=== PATIENT | female | born 1970 | race Caucasian/White ===

== ENCOUNTER → 2019-10-23 10:59 | Outpatient (BNVA) | payer MEDICAID, SELFPAY | PROVIDERS: Family Provider Nurse Practitioner; PCP Nurse Practitioner; Visit Provider Nurse Practitioner | DX: I10 Essential (primary) hypertension (principal); E55.9 Vitamin D deficiency, unspecified; K21.9 Gastro-esophageal reflux disease without esophagitis; R05 Cough | CPT/HCPCS: 71046; 80053; 80061; 81003; 82306; 82607; 83540; 83550; 85025; 87086 ==

== ENCOUNTER 2020-04-23 15:53 | Emergency (ER) | payer MEDICAID, SELFPAY ==
--- NOTE | 2020-04-23 15:55 | XRR_ITS ---
PROCEDURE INFORMATION: Exam: XR Right Knee Exam date and time: 04/23/2020 4:48 PM Age: 50 years old Clinical indication: Pain; Right; Patient HX: Twisted RT knee and almost fell TECHNIQUE: Imaging protocol: XR Right knee. Views: 3 views. COMPARISON: CR Knee 3 views, RIGHT* [id number] 09/28/2016 3:33 PM FINDINGS: Bones/joints: There is a moderate sized knee joint effusion. The joint spaces are maintained but there are [id number] diffuse degenerative changes with marginal osteophytes and mild sclerosis that has progressed compared to the old exam. No acute fracture or dislocation. No chondrocalcinosis. Soft tissues: No lipohemarthrosis. There is no foreign body. Other findings: There is no intra-articular body. XR/XR knee RT 3V* [id number] IMPRESSION: No acute bony abnormality. There is a moderate sized knee joint effusion and progressive degenerative changes compared to the old exam.
[2020-04-23 16:23] VITALS: BP 173/93; PULSE 106; RESP 20; TEMP 36.8; O2SAT 99; BMI 41.5
--- NOTE | 2020-04-23 16:34 | ED_ITS ---
HPI - Extremity Problem General: Chief complaint: Extremity Problem,Nontraumatic Stated complaint: RIGHT KNEE PAIN Time Seen by Provider: 04/23/20 16:24 Source: patient Mode of arrival: ambulatory Limitations: no limitations History of Present Illness: HPI Narrative: 10-year-old female states she slipped 2 days ago on her right leg. She states she did not have much pain then but she is developed increasing knee pain since then. States her knee pain is much worse today and she is had swelling to that knee. She denies any fevers. States it is painful to try to walk blood. She denies any ankle or hip pain. She states that it is improved with rest. Complaint: extremity pain Associated symptoms: Deny chest pain, fever(s) or rash Review of Systems Const: Denies: fever(s), chills, body aches or change in appetite Eyes: Denies: blurry vision or eye discomfort ENMT: Denies: throat pain or dental pain Card: Denies: chest pain Resp: Denies: dyspnea GI: Denies: abdominal pain, nausea, vomiting or diarrhea : Denies: dysuria Musc: Reports: extremity pain Skin/Breast: Denies: rash Neuro: Denies: headache(s) Psych: Denies: depression Jose/Lymph: Denies: easy bruising All/Imm: Denies: urticaria PFSH ED PFSH: Medical History GERD (gastroesophageal reflux disease) Vitamin D insufficiency Surgical History H/O repair of right rotator cuff History of ankle surgery ORIF TRIMALLEOLAR FRACTURE Left ANKLE History of section History of right knee surgery Scope Family History Grandfather Hypertension Mother Hypertension Stroke Father Diabetes Social History Smoking and tobacco status: current every day smoker Smoking risk assessment/counseling performed?: Yes Alcohol intake: current Alcohol intake frequency: holidays/special occasions only Desire information about alcohol rehabilitation?: No Desire information about substance/drug rehabilitation?: No Counseling given: No Caregiver/support person: No Lives independently: Yes Marital status: Single History of recent travel: No Current gender identity: Female Female Reproductive History: Date of last menstrual period: 04/02/20 Physical Exam Const: COMMON NORMALS: no acute distress, patient oriented x3 and healthy appearing HENMT: COMMON NORMALS: normocephalic and atraumatic HEAD & SCALP: normocephalic and atraumatic Eye: COMMON NORMALS: Equal, round and reactive pupils present and EOMs intact bilaterally PUPIL: Yes Equal, round and reactive pupils present Neck/C-Spine: COMMON NORMALS: full ROM and supple Chest: COMMONS NORMALS: normal inspection of the chest and normal palpation of entire chest wall Resp: COMMON NORMALS: normal respiratory effort, No retractions, No use of accessory muscles and clear to auscultation bilaterally AUSCULTATION: clear to auscultation bilaterally Cardio: COMMON NORMALS: regular rate, regular rhythm and No murmurs present (Cardio) RATE: regular rate RHYTHM: regular rhythm GI: COMMON NORMALS: Normal to inspection, nondistended, normoactive bowel sounds present, Soft to palpation, non-tender and no masses PALPATION: Yes Soft to palpation Extremity: NARRATIVE EXTREMITY EXAM: Slight joint effusion. Patient does have tenderness to touch. She has no warmth to touch over her joint. Neuro: COMMON NORMALS: patient oriented x3, moves all extremities and no focal motor deficits Psych: COMMON NORMALS: mental status grossly normal, Normal thought process present and cooperative THOUGHT PROCESS: Normal thought process present Skin: COMMON NORMALS: no rashes or lesions noted and no wounds GENERAL SKIN EXAM: no rashes or lesions noted Course Vital Signs: Vital signs: Vital Signs Temperature 98.3 F 04/23/20 16:23 Pulse Rate 104 H 04/23/20 17:22 Respiratory Rate 21 H 04/23/20 17:22 Blood Pressure 123/106 04/23/20 17:22 Pulse Oximetry 96 04/23/20 17:22 MDM - Extremity (Nontraumatic) MDM Narrative: Medical decision making narrative: Patient presents here with a right knee sprain from 2 days ago. She does have some swelling but no warmth to touch. Patient had an elevated CRP and I offered her a tap of her knee to rule out septic joint. She states she believes she injured it 2 days ago and refused the tap. Will place her knee immobilizer and have her follow-up with Dr. Gabriel. She is to return if she changes her mind about tapping her knee or she has fever. She understands and agrees to plan. Lab Data: Labs: Lab Results 04/23/20 04/23/20 Range/Units 17:13 17:13 WBC 8.9 (4.0-10.0) 10^3/ uL RBC 4.05 L (4.1-5.3) 10^6/u L Hgb 11.0 L (11.5-15.3) g/dL Hct 34.8 L (37.0-47.0) % MCV 85.9 (81-99) fL MCH 27.2 L (28.0-34.0) pg MCHC 31.6 (30.0-36.0) g/dL RDW 16.6 H (12.1-15.1) % Plt Count 420 H (130-400) 10^3/c mm MPV 8.3 (7.4-10.4) fL Neut % (Auto) 68.9 % Lymph % (Auto) 21.2 % [place] % (Auto) 7.6 % Eos % (Auto) 1.8 % Baso % (Auto) 0.1 % Neut # (Auto) 6.14 (1.8-7.7) 10^3/u L Lymph # (Auto) 1.9 (0.8-4.8) 10^3/u L [place] # (Auto) 0.7 (0.2-0.9) 10^3/u L Eos # (Auto) 0.2 (0.0-0.8) 10^3/u L Baso # (Auto) 0.0 (0.0-0.1) 10^3/u L Nucleated RBC % (a uto) 0 % Nucleated RBCs # 0.0 /100WBC C-Reactive Protein 67.4 H (0.0-4.9) mg/L Imaging Data^: Other Xray: Radiologist's impression: [address] [address] XRay Report Signed Patient: Maren Granados Unit #: [id number] : 1970 Age/Sex: 50 / F ADM Date: 04/23/20 Loc: ER Room/Bed: Attending Dr: Ordering Provider/Ordering MD: Mayte Martinez MD Date of Service: 04/23/20 Procedure(s): XR knee RT 3V* [id number] Accession Number(s): [id number] Report Number: [id number] PROCEDURE INFORMATION: Exam: XR Right Knee Exam date and time: 04/23/2020 4:48 PM Age: 50 years old Clinical indication: Pain; Right; Patient HX: Twisted RT knee and almost fell TECHNIQUE: Imaging protocol: XR Right knee. Views: 3 views. COMPARISON: CR Knee 3 views, RIGHT* [id number] 09/28/2016 3:33 PM FINDINGS: Bones/joints: There is a moderate sized knee joint effusion. The joint spaces are maintained but there are [id number] diffuse degenerative changes with marginal osteophytes and mild sclerosis that has progressed compared to the old exam. No acute fracture or dislocation. No chondrocalcinosis. Soft tissues: No lipohemarthrosis. There is no foreign body. Other findings: There is no intra-articular body. XR/XR knee RT 3V* [id number] IMPRESSION: No acute bony abnormality. There is a moderate sized knee joint effusion and progressive degenerative changes compared to the old exam. Discharge Plan Discharge Patient Disposition: Home Clinical Impression: Right knee sprain Qualifiers: Encounter type: initial encounter Involved ligament of knee: unspecified ligament Qualified Code(s): S83.91XA - Sprain of unspecified site of right knee, initial encounter Condition: Stable Prescriptions: [place] 5-325 mg tablet 1 tab PO Q6H PRN (Reason: pain) Qty: 14 RF: 0 No Action lisinopril-hydrochlorothiazide 20-25 mg tablet 1 tab PO DAILY 30 Days Qty: 30 RF: 5 albuterol sulfate [ProAir HFA] 90 mcg/actuation HFA aerosol inhaler 2 puff INHALATION Q4H PRN (Reason: Shortness Of Breath) RF: 0 pantoprazole [Protonix] 20 mg tablet,delayed release (DR/EC) 20 mg PO DAILY RF: 0 Discharge Orders: Discharge Order (Routine); Ordered 04/23/20 Ordered By: Mayte Martinez Referrals: Gopal Wynn, DOCTOR [facility] [Primary Care Provider] - Mila Barlow MD [Physician] - 1-3 days Discharge Diet: Advance as tolerated Discharge Activity: Resume usual activity Patient Instructions: Knee Sprain (ED) Coding Level of Care Code ED Auto Body Mechanic Apprentice for Chg Fwd Exam Comprehensive
[2020-04-23 17:15] VITALS: RESP 20; O2SAT 100
[2020-04-23] MEDS: morphine 4 mg/mL SDV 1 mL IVP (17:15)
[2020-04-23 17:22] VITALS: BP 123/106; PULSE 104; RESP 21; O2SAT 96
[2020-04-23 17:22] LABS: Basophils % 0.1 %; Eosinophils # 0.2 10^3/uL (0.0-0.8); Eosinophils % 1.8 %; Hematocrit 34.8 % (37.0-47.0); Lymphocytes # 1.9 10^3/uL (0.8-4.8); Lymphocytes % 21.2 %; Mean Corpuscular HGB Conc 31.6 g/dL (30.0-36.0); Mean Corpuscular Hemoglobin 27.2 pg (28.0-34.0); Mean Corpuscular Volume 85.9 fL (81-99); Mean Platelet Volume 8.3 fL (7.4-10.4); Monocytes # 0.7 10^3/uL (0.2-0.9); Monocytes % 7.6 %; Neutrophils # 6.14 10^3/uL (1.8-7.7); Neutrophils % 68.9 %; Nucleated Red Blood Cells % 0 %; Platelet Count 420 10^3/cmm (130-400); Red Blood Count 4.05 10^6/uL (4.1-5.3); Red Cell Distribution Width 16.6 % (12.1-15.1); White Blood Count 8.9 10^3/uL (4.0-10.0)
[2020-04-23 17:41] LABS: C Reactive Protein 67.4 mg/L (0.0-4.9)
[2020-04-23] MEDS: HYDROcodone-acetaminophen 7.5-325 mg Tablet 1 TAB PO (17:50)
--- NOTE | 2020-04-23 18:23 | PC.NURSE ---
Patient came in with crutches. Patient stated that she did not need new crutches. This nurse observed patient using crutches properly with the appropriate crutch height.
[2020-04-23 18:27] VITALS: BP 130/96; PULSE 99; RESP 19; O2SAT 97
--- NOTE | 2020-04-26 10:58 | DCPLANNER ---
project account manager had message to schedule a follow up appointment for patient with ortho. project account manager called the ortho clinic, spoke with Pat, gave clinic patients information. project account manager was told that patients information would be printed and reviewed. Clinic will call patient with appointment information.
--- NOTE | 2020-04-28 13:47 | DCPLANNER ---
Patient has a follow up appointment scheduled for , April 29, 2020 at 9:[address] Barlow. Clinic will call patient with appointment information.
--- NOTE | 2020-06-10 07:59 | DCPLANNER ---
Patient had an appointment scheduled for 04.29.20 with ortho - patient did not attend appointment.
== END 2020-04-23 18:27 | disposition home or self-care (01) ==
PROVIDERS: Emergency Provider Emergency Medicine; PCP Nurse Practitioner
DX: S83.91XA Sprain of unspecified site of right knee, initial encounter (principal); F17.210 Nicotine dependence, cigarettes, uncomplicated; W01.0XXA Fall on same level from slipping, tripping and stumbling without subsequent striking against object, initial encounter
CPT/HCPCS: 12345; 29530; 36415; 73562; 85025; 86140; 96374; 99281; 99283; J2270

== ENCOUNTER 2020-06-01 13:39 | Outpatient (CLI) | payer MEDICAID, SELFPAY ==
--- NOTE | 2020-06-01 13:44 | MR_ITS ---
WS: [id number] MRI RIGHT KNEE HISTORY: M25.561 Pain in right knee COMPARISON: 04/23/2020 Anterior cruciate ligament: Increased T2 signal throughout the ACL. Fibers are normal orientation. Pa rtial tear distally along the posterior fundal is not excluded. No full-thickness tear. Posterior cruciate ligament: Mild buckling of the PCL but no tear. There is increased fluid and T2 si gnal surrounding the PCL. Medial collateral ligament: Increased T2 signal both sides of the MCL. Posterior lateral corner structures: High-grade tear of the popliteus tendon. There is increased josé a within the popliteus muscle also. Medial menisci: At the meniscal root there is increased T2 signal in the posterior horn. Lateral meniscus: Intact. Normal signal, size and shape. Extensor mechanism: Distal quadriceps tendon and patellar tendons are intact. Fluid and soft tissue: Moderate-sized joint effusion. There is a large amount of soft tissue edema appiah rrounding the knee. No Zuluaga's cyst. Osseous and articular structures: Patellofemoral compartment: Patellar retinaculum is intact. No edema within the patella. Medial compartment: Mild narrowing medial compartment with thinning of the cartilage. Lateral compartment: Mild narrowing of the lateral compartment with thinning of the cartilage. There is a large amount of marrow edema involving the central and posterior tibial plateau. No fractu re. MR/MR knee RT wo con* [id number] IMPRESSION: 1. Large amount of marrow edema in the mid and posterior tibial plateau with n o fracture identified. 2. Partial tear ACL. 3. Complex tear meniscal root posterior horn medial meniscus. 4. High-grade tear popliteus tendon with a moderate amount of edema in the pop liteus muscle. 5. Mild MCL sprain. 6. Moderate joint effusion and soft tissue edema surrounding the knee.
== END 2020-06-01 13:40 | disposition home or self-care (01) ==
LOC: RADWPI 13:42
PROVIDERS: Family Provider Nurse Practitioner; PCP Nurse Practitioner; Visit Provider Specialist
DX: R60.0 Localized edema (principal); S43.51XA Sprain of right acromioclavicular joint, initial encounter; S83.231A Complex tear of medial meniscus, current injury, right knee, initial encounter; S83.411A Sprain of medial collateral ligament of right knee, initial encounter; X58.XXXA Exposure to other specified factors, initial encounter; M25.461 Effusion, right knee
CPT/HCPCS: 73721

== ENCOUNTER 2020-06-23 14:15 | Outpatient (CLI) | payer MEDICAID, SELFPAY | END 2020-06-23 14:16 | disposition home or self-care (01) | LOC: SPT 14:15 | PROVIDERS: Family Provider Nurse Practitioner; PCP Nurse Practitioner; Visit Provider Specialist | DX: Z46.89 Encounter for fitting and adjustment of other specified devices (principal); M23.91 Unspecified internal derangement of right knee | CPT/HCPCS: 97760; L1812 ==

== ENCOUNTER 2020-08-31 15:53 | Outpatient (CLI) | payer MEDICAID, SELFPAY ==
--- NOTE | 2020-08-31 15:45 | USCV_ITS ---
Maren Granados Age: 50 Gender: F : 1970 Exam Date: 08/31/2020 16:21 Ordering Phys: Madina Tiwari Technologist: Richy Segura Exam Location: [facility] [place] Indication: chest pain BP: / HR: Rhythm: Sinus Technical Quality: Fair MEASUREMENTS (Male / Female) Normal Values 2D ECHO LV Diastolic Diameter PLAX 2.9 cm 4.2 - 5.9 / 3.9 - 5.3 cm LV Systolic Diameter PLAX 2.0 cm IVS Diastolic Thickness 1.8 cm 0.6 - 1.0 / 0.6 - 0.9 cm IVS Systolic Thickness 2.2 cm LVPW Diastolic Thickness 1.6 cm 0.6 - 1.0 / 0.6 - 0.9 cm LVPW Systolic Thickness 2.2 cm LVOT Diameter 2.0 cm LV Ejection Fraction 2D Teich 58.3 % LV Ejection Fraction MOD 2C 66.7 % LV Ejection Fraction 2C AL 67.2 % LA Diameter 2.9 cm LA Width 2.9 cm LA Height 3.1 cm RA Width 2.8 cm RA Height 3.2 cm Aorta at Sinotubular Diameter 2.3 cm M-MODE LV Diastolic Diameter MM 4.4 cm 4.2 - 5.9 / 3.9 - 5.3 cm LV Systolic Diameter MM 2.6 cm LV Ejection Fraction MM Teich 72.9 % IVS Diastolic Thickness MM 1.1 cm 0.6 - 1.0 / 0.6 - 0.9 cm IVS Systolic Thickness MM 1.9 cm LVPW Diastolic Thickness MM 1.6 cm 0.6 - 1.0 / 0.6 - 0.9 cm LVPW Systolic Thickness MM 1.7 cm Aortic Annulus Diameter 3.1 cm LA Ao Ratio MM 1.1 MV E Point Septal Separation 1.1 cm DOPPLER AV Peak Velocity 126.0 cm/s LVOT Peak Velocity 91.0 cm/s AV Area Cont Eq vti 2.3 cm squared AV Area Cont Eq pk 2.3 cm squared MV Area PHT 5.1 cm squared Mitral E to A Ratio 0.6 MV E' Velocity 31.5 cm/s Mitral E to MV E' Ratio 7.2 Mitral E to LV E' Lateral Ratio 6.2 Mitral E to LV E' Septal Ratio 8.8 TR Peak Velocity 141.0 cm/s TR Peak Gradient 8.0 mmHg TV Peak E Velocity 83.0 cm/s Right Atrial Pressure 3.0 mmHg Pulmonary Artery Systolic Pressu 11.0 mmHg FINDINGS Left Ventricle Normal left ventricular size and systolic function, EF 56 %. Mild left ventricular hypertrophy. No regional wall motion abnormalities. Grade I/IV diastolic dysfunction (abnormal relaxation filling pattern), normal to mildly elevated filling pressures. Right Ventricle The right ventricle is normal in size and function. Right Atrium The right atrium is normal in size. Left Atrium The left atrium is normal in size. Mitral Valve No gross abnormalities noted Aortic Valve No gross abnormalities noted Tricuspid Valve No gross abnormalities noted Pulmonic Valve Pulmonic valve not well visualized. Pericardium Normal pericardium without effusion. Aorta Normal ascending aorta dimension. CONCLUSIONS Normal left ventricular size and systolic function, EF 56 %. Mild left ventricular hypertrophy. No regional wall motion abnormalities. Grade I/IV diastolic dysfunction (abnormal relaxation filling pattern), normal to mildly elevated filling pressures. Normal cardiac chamber sizes. No significant stenotic or regurgitant lesions There is no pericardial effusion. There are no intracardiac masses. No previous study is available for comparison. Dr Tj Rodas MD [facility] (Electronically Signed) Final Date: 31 August 2020 22:25 S
== END 2020-08-31 15:54 | disposition home or self-care (01) ==
PROVIDERS: PCP Nurse Practitioner; Visit Provider Nurse Practitioner Family
DX: R07.9 Chest pain, unspecified (principal)
CPT/HCPCS: 71046; 80053; 83880; 85025; 93306

== ENCOUNTER → 2020-09-29 14:57 | Outpatient (BNVA) | payer MEDICAID, SELFPAY | PROVIDERS: PCP Nurse Practitioner; Visit Provider Family Medicine | DX: Z20.828 Contact with and (suspected) exposure to other viral communicable diseases (principal); I10 Essential (primary) hypertension; E66.9 Obesity, unspecified | CPT/HCPCS: 87635 ==

== ENCOUNTER 2020-10-06 13:37 | Outpatient (CLI) | payer MEDICAID, SELFPAY ==
--- NOTE | 2020-10-06 14:07 | PFTS_ITS ---
Date of Study:10/06/20 Date of Dictation: MECHANICS: Forced vital capacity (FVC) is normal. Forced expiratory volume in one second (FEV1) is normal. FEV1/FVC is normal. FLOW VOLUME LOOP: The peak expiratory flow is absent and the flow volume loop. This is likely due to hesitation. LUNG VOLUMES: Total lung capacity (TLC) is normal. Residual volume (RV) is mildly reduced. DIFFUSING CAPACITY FOR CARBON MONOXIDE: Mild reduced. INTERPRETATION: The prebronchodilator spirometry is normal. The lung volumes are essentially normal. The mild reduced residual volume is likely secondary to obesity. Gas exchange (DLCO) is mildly reduced. MTDD
== END 2020-10-06 13:38 | disposition home or self-care (01) ==
LOC: RT 13:39
PROVIDERS: PCP Nurse Practitioner Family; Visit Provider Nurse Practitioner Family
DX: R06.02 Shortness of breath (principal)
CPT/HCPCS: 94010; 94726; 94729

== ENCOUNTER → 2020-11-19 11:36 | Outpatient (BNVA) | payer MEDICAID, SELFPAY | PROVIDERS: PCP Nurse Practitioner Family; Visit Provider Internal Medicine Cardiovascular Disease | DX: I50.31 Acute diastolic (congestive) heart failure (principal) | CPT/HCPCS: 80048; 83735; 83880 ==

== ENCOUNTER 2021-02-13 18:05 | Emergency (ER) | payer MEDICAID, SELFPAY ==
[2021-02-13 18:39] VITALS: BP 140/83; PULSE 95; RESP 18; TEMP 36.3; O2SAT 97; BMI 34.7
--- NOTE | 2021-02-13 19:22 | ED_ITS ---
HPI - Skin/Abscess/Foreign Bdy General: Chief complaint: Skin/Abscess/Foreign Body Stated complaint: leg swelling Time Seen by Provider: 02/13/21 19:10 History of Present Illness: HPI narrative: Patient comes in today with bilateral lower leg swelling, increased redness, and splotches to the skin. Patient has a history of swelling to bilateral lower extremities with a diagnosis of peripheral edema. Patient denies any fever. Patient denies diabetes. Patient does report occasional cough with nasal drainage for the last couple of days. Patient was concerned that she may have a DVT. Review of Systems General: Reports: 10 or more systems reviewed and unremarkable except in HPI and below Skin/Breast: Reports: other (Erythema with some mild petechiae to the bilateral lower extremities.) PFSH ED PFSH: Medical History (Updated 02/13/21 @ 20:30 by ERICK Goodwin) GERD (gastroesophageal reflux disease) Vitamin D insufficiency Surgical History H/O repair of right rotator cuff History of ankle surgery ORIF TRIMALLEOLAR FRACTURE Left ANKLE History of section History of right knee surgery Scope Family History Grandfather Hypertension Mother Hypertension Stroke Father Diabetes Social History Smoking and tobacco status: current every day smoker cigarettes Packs smoked per day: 0.5 Smoking risk assessment/counseling performed?: Yes Alcohol intake: current Alcohol intake frequency: holidays/special occasions only Desire information about alcohol rehabilitation?: No Desire information about substance/drug rehabilitation?: No Counseling given: No Caregiver/support person: No Lives independently: Yes Marital status: Single History of recent travel: No Current gender identity: Female Female Reproductive History: Date of last menstrual period: 04/02/20 Physical Exam Const: COMMON NORMALS: no acute distress and patient oriented x3 GENERAL APPEARANCE: cooperative HENMT: COMMON NORMALS: normocephalic, TM's normal bilaterally and Normal external nose present HEAD & SCALP: normal to inspection and normocephalic NOSE: Normal external nose present TYMPANIC MEMBRANE: TM's normal bilaterally MOUTH: Normal oral and palatal mucosa present Eye: GENERAL EYE: appearance normal, both eyes and all related structures Neck/C-Spine: COMMON NORMALS: full ROM Lymph: LYMPHATIC: no lymphadenopathy noted Chest: COMMONS NORMALS: normal inspection of the chest Resp: COMMON NORMALS: normal respiratory effort EFFORT & INSPECTION: Yes able to speak in complete sentences Cardio: COMMON NORMALS: regular rate and regular rhythm RATE: regular rate RHYTHM: regular rhythm GI: COMMON NORMALS: non-tender Back/Pelvis: COMMON NORMALS: thoracic and lumbar spine normal to inspection Extremity: NARRATIVE EXTREMITY EXAM: Bilateral lower extremity +2 edema. Redness to bilateral gaiter areas. There is some mild petechiae and splotches within the redness. Neuro: COMMON NORMALS: patient oriented x3 and moves all extremities Psych: COMMON NORMALS: mental status grossly normal and cooperative Skin: NARRATIVE SKIN EXAM: Redness to bilateral lower extremities. Course Vital Signs: Vital signs: Vital Signs Temperature 97.3 F L 02/13/21 18:39 Pulse Rate 95 02/13/21 18:39 Respiratory Rate 18 02/13/21 18:39 Blood Pressure 140/83 02/13/21 18:39 Pulse Oximetry 97 02/13/21 18:39 MDM - Skin/Abscess/Foreign Bdy MDM Narrative: Medical decision making narrative: Patient comes in today for complaints of redness and splotching to the lower extremities of both legs. Patient is reports a mild respiratory infection for last couple days. On exam patient appears well. Patient appears no acute distress. Lungs are clear to auscultation. Patient is +2 edema to the lower extremities. Patient does have some mild petechiae to bilateral lower extremities. Differential diagnosis includes stasis dermatitis, cellulitis, HSP, thrombocytopenia. I suspect patient probably has HSP due to a respiratory infection causing the petechiae and spotting to the lower extremities. Patient also has a secondary problem of peripheral vascular disease causing some edema to lower extremities. Patient will continue with her furosemide and elevate her lower extremities. We will go ahead and treat with cephalexin for her respiratory symptoms and give her 1 dose of steroids due to her cough and congestion. Lab Data: Labs: Lab Results 02/13/21 02/13/21 Range/Units 19:46 19:46 WBC 8.0 (4.0-10.0) 10^3/ uL RBC 4.01 L (4.1-5.3) 10^6/u L Hgb 10.4 L (11.5-15.3) g/dL Hct 31.9 L (37.0-47.0) % MCV 79.6 L (81-99) fL MCH 25.9 L (28.0-34.0) pg MCHC 32.6 (30.0-36.0) g/dL RDW 17.0 H (12.1-15.1) % Plt Count 458 H (130-400) 10^3/c mm MPV 7.9 (7.4-10.4) fL Neut % (Auto) 58.5 % Lymph % (Auto) 29.4 % [place] % (Auto) 8.2 % Eos % (Auto) 3.3 % Baso % (Auto) 0.3 % Neut # (Auto) 4.67 (1.8-7.7) 10^3/u L Lymph # (Auto) 2.3 (0.8-4.8) 10^3/u L [place] # (Auto) 0.7 (0.2-0.9) 10^3/u L Eos # (Auto) 0.3 (0.0-0.8) 10^3/u L Baso # (Auto) 0.0 (0.0-0.1) 10^3/u L Nucleated RBC % (a uto) 0 % Nucleated RBCs # 0.0 /100WBC Sodium 134 L (136-145) mmol/L Potassium 4.0 (3.5-5.1) mmol/L Chloride 100 (98-107) mmol/L Carbon Dioxide 22 (22-29) mmol/L Anion Gap 16.0 (5-19) BUN 9 (6-20) mg/dL Creatinine 0.5 (0.5-0.9) mg/dL GFR Calculation 131.1 H (90-130) mL/min Glucose 105 (65-115) mg/dL Calculated Osmolal ity 277 L (285-295) mOsm/k g Calcium 8.0 L (8.5-10.5) mg/dL Discharge Plan Discharge Patient Disposition: Home Clinical Impression: Edema, peripheral, HSP (Henoch Schonlein purpura), Bronchitis Condition: Stable Prescriptions: New cephalexin 500 mg capsule 500 mg PO TID 7 Days Qty: 21 RF: 0 No Action (DME) HINGED KNEE BRACE See Rx Instructions .Route .MEDSUPPLY Qty: 1 RF: 0 albuterol sulfate [ProAir HFA] 90 mcg/actuation HFA aerosol inhaler 2 puff INHALATION Q4H PRN (Reason: Shortness Of Breath) 30 Days Qty: 6.7 RF: 5 garlic 500 mg capsule 500 mg PO DAILY RF: 0 Contrave 8-90 mg tablet extended release 2 tab PO BID Qty: 120 RF: 0 furosemide 40 mg tablet 40 mg PO BID Qty: 60 RF: 3 pantoprazole [Protonix] 20 mg tablet,delayed release (DR/EC) 20 mg PO DAILY Qty: 30 RF: 0 potassium chloride 20 mEq tablet extended release 20 meq PO DAILY Qty: 30 RF: 1 phentermine [Adipex-P] 37.5 mg tablet 37.5 mg PO DAILY Qty: 30 RF: 0 valsartan 80 mg tablet See Rx Instructions .ROUTE .COMPLEX Qty: 30 RF: 1 Discharge Orders: Discharge ED (Routine); Ordered 02/13/21 Ordered By: Eloy Hunter Referrals: Madina Tiwari FNP-C [Primary Care Provider] - Discharge Diet: Usual diet Discharge Activity: Increase activity as tolerated Patient Instructions: Opioid Safety Activity Restrictions/Additional Instructions: Healthy diet. Elevate extremities. Continue with Lasix as ordered. Take antib iotic 3 times a day for the next 7 days. Continue with albuterol every 4 hours for next 3 days, and then continue with routine care. Follow-up with primary care in 1 week for recheck. Return to the ER for new concerns or worsening symptoms. Coding Level of Care Code ED Construction Administrator for Joelle Ochoa Exam Comprehensive
[2021-02-13 19:50] LABS: Basophils % 0.3 %; Eosinophils # 0.3 10^3/uL (0.0-0.8); Eosinophils % 3.3 %; Hematocrit 31.9 % (37.0-47.0); Hemoglobin 10.4 g/dL (11.5-15.3); Lymphocytes # 2.3 10^3/uL (0.8-4.8); Lymphocytes % 29.4 %; Mean Corpuscular HGB Conc 32.6 g/dL (30.0-36.0); Mean Corpuscular Hemoglobin 25.9 pg (28.0-34.0); Mean Corpuscular Volume 79.6 fL (81-99); Mean Platelet Volume 7.9 fL (7.4-10.4); Monocytes # 0.7 10^3/uL (0.2-0.9); Monocytes % 8.2 %; Neutrophils # 4.67 10^3/uL (1.8-7.7); Neutrophils % 58.5 %; Nucleated Red Blood Cells % 0 %; Platelet Count 458 10^3/cmm (130-400); Red Blood Count 4.01 10^6/uL (4.1-5.3)
[2021-02-13 20:06] LABS: Blood Urea Nitrogen 9 mg/dL (6-20); Carbon Dioxide 22 mmol/L (22-29); Chloride 100 mmol/L (98-107); Glomerular Filtration Rate 131.1 mL/min (90-130); Glucose 105 mg/dL (65-115); Osmolality Calculated 277 mOsm/kg (285-295); Sodium 134 mmol/L (136-145)
[2021-02-13] MEDS: dexamethasone 4 mg Tablet 10 MG PO (20:45)
[2021-02-13] MEDS: cephALEXin 500 mg Capsule PO (20:46)
== END 2021-02-13 21:03 | disposition home or self-care (01) ==
PROVIDERS: Emergency Provider Nurse Practitioner Family; PCP Nurse Practitioner Family
DX: R60.0 Localized edema (principal); D69.0 Allergic purpura; J40 Bronchitis, not specified as acute or chronic; F17.210 Nicotine dependence, cigarettes, uncomplicated
CPT/HCPCS: 80048; 85025; 99283; J8540

== ENCOUNTER → 2021-04-21 16:18 | Outpatient (BNVA) | payer MEDICAID, SELFPAY | PROVIDERS: PCP Nurse Practitioner Family; Visit Provider Nurse Practitioner Family | DX: Z20.822 Contact with and (suspected) exposure to COVID-19 (principal) | CPT/HCPCS: 87635 ==

== ENCOUNTER → 2022-07-11 10:41 | Outpatient (BNVA) | payer MEDICAID, SELFPAY | PROVIDERS: PCP Nurse Practitioner Family; Visit Provider Nurse Practitioner | DX: I10 Essential (primary) hypertension (principal); E66.01 Morbid (severe) obesity due to excess calories; B35.4 Tinea corporis; Z12.4 Encounter for screening for malignant neoplasm of cervix | CPT/HCPCS: 80053; 83735; 84443; 88175 ==

== ENCOUNTER 2022-10-25 09:59 | Outpatient (CLI) | payer MEDICAID, SELFPAY ==
--- NOTE | 2022-10-25 10:17 | MM_ITS ---
WS: [id number] Bilateral screening 3D tomosynthesis digital mammogram, 10/25/2022 Clinical Data: Z12.39 - Encounter for other screening for malignant neop... Comparison: 12/04/2016 Findings: The breast parenchymal pattern shows fat replacement. No spiculated masses or clustered calcification s are seen. There are no secondary signs of carcinoma. There are mole markers on the left breast. The re are left axillary lymph nodes. MM/[place] [id number] Impression: 1. Negative bilateral mammogram unchanged. 2. Recommend annual screening mammograms. BIRADS: 1-Negative FOLLOW UP: 1 Year Follow-up The CAD battery checker was used.
== END 2022-10-25 10:00 | disposition home or self-care (01) ==
LOC: RAD 10:00
PROVIDERS: PCP Nurse Practitioner; Visit Provider Nurse Practitioner
DX: Z12.31 Encounter for screening mammogram for malignant neoplasm of breast (principal)
CPT/HCPCS: 77063; 77067

== ENCOUNTER → 2022-11-02 15:45 | Outpatient (BNVA) | payer MEDICAID, SELFPAY | PROVIDERS: PCP Nurse Practitioner; Visit Provider Nurse Practitioner | DX: E55.9 Vitamin D deficiency, unspecified (principal); E66.01 Morbid (severe) obesity due to excess calories; I10 Essential (primary) hypertension; M14.60 Charcot's joint, unspecified site | CPT/HCPCS: 80053; 80061; 82306; 84443; 85025 ==

== ENCOUNTER → 2023-04-16 16:10 | Outpatient (BNVA) | payer MEDICAID, SELFPAY | PROVIDERS: PCP Nurse Practitioner; Visit Provider Nurse Practitioner | DX: R73.9 Hyperglycemia, unspecified (principal); Z13.6 Encounter for screening for cardiovascular disorders; I10 Essential (primary) hypertension; M14.60 Charcot's joint, unspecified site | CPT/HCPCS: 80053; 80061; 83036 ==

== ENCOUNTER → 2023-07-05 13:24 | Outpatient (BNVA) | payer MEDICAID, SELFPAY | PROVIDERS: PCP Nurse Practitioner; Visit Provider Nurse Practitioner Family | DX: S91.012A Laceration without foreign body, left ankle, initial encounter (principal); S99.912A Unspecified injury of left ankle, initial encounter; X58.XXXA Exposure to other specified factors, initial encounter | CPT/HCPCS: 73610 ==

== ENCOUNTER → 2023-09-20 14:23 | Outpatient (BNVA) | payer MEDICAID, SELFPAY | PROVIDERS: PCP Nurse Practitioner; Visit Provider Nurse Practitioner Family | DX: M54.9 Dorsalgia, unspecified (principal); M25.551 Pain in right hip; Z79.899 Other long term (current) drug therapy | CPT/HCPCS: 81000 ==

== ENCOUNTER 2024-01-13 09:17 | Emergency (ER) | payer MEDICAID, SELFPAY ==
[2024-01-13 09:37] VITALS: PULSE 82; TEMP 36.9; O2SAT 97; BMI 38.7
--- NOTE | 2024-01-13 09:42 | USR_ITS ---
PROCEDURE INFORMATION: Exam: US Duplex Right Lower Extremity Veins, Limited Exam date and time: 01/13/2024 10:18 AM Age: 53 years old Clinical indication: Pain; Leg, lower; Right; Additional info: Leg pain swelling TECHNIQUE: Imaging protocol: Real-time duplex ultrasound of the right extremity with 2-D shetty scale, color Doppler flow and spectral waveform analysis including responses to compression and other maneuvers (when performed) with image documentation. Limited exam was focused on the right lower extremity veins. COMPARISON: MR knee RT wo con* [id number] 06/01/2020 1:40 PM FINDINGS: The common femoral, femoral, popliteal and posterior tibial veins are patent. There is appropriate compression and augmentation. Doppler interogation reveals venous blood flow. US/[place] [id number] IMPRESSION: No evidence of deep venous thrombosis.
--- NOTE | 2024-01-13 10:57 | W.ED.EXTPRO ---
HPI - Extremity Problem General: Chief complaint: Extremity Problem,Nontraumatic Stated complaint: Right leg pain/swelling Time Seen by Provider: 01/13/24 09:31 Source: patient Mode of arrival: ambulatory History of Present Illness: 53-year-old female presents to the emergency room complaining of pain and swelling in the right lower leg with some redness and erythema that began overnight is extremely tender to the touch there is some slight abrasions there. No drainage. She denies any fever sweats or chills. No shortness of breath this time or chest discomfort. MD Complaint: extremity pain Onset (ago): hour(s) Pain Consistency: constant Location: right and lower extremity Quality: burning Radiation: distal Relieving factors: rest Exacerbating factors: palpation Associated symptoms: Deny chest pain, fever(s) or rash Review of Systems Const: Denies: fever(s) or chills Card: Denies: chest pain Resp: Denies: dyspnea GI: Denies: abdominal pain : Denies: dysuria, urinary frequency or urinary urgency Musc: Denies: neck pain or back pain Skin/Breast: Denies: rash PFSH ED PFSH: Medical History Obesity, morbid, BMI 40.0-49.9 Vitamin D insufficiency GERD (gastroesophageal reflux disease) Surgical History History of section History of right knee surgery Scope H/O repair of right rotator cuff History of ankle surgery ORIF TRIMALLEOLAR FRACTURE Left ANKLE Family History Grandfather Hypertension Mother Hypertension Stroke Father Diabetes Social History Smoking and tobacco/nicotine status: current every day tobacco/nicotine user cigarettes Packs smoked per day: 0.5 Second hand smoke exposure: No Alcohol intake: current Alcohol intake frequency: holidays/special occasions only Substance/Drug Use: unknown Adopted: No Caregiver/support person: No Lives independently: Yes Marital status: Single service: No Current occupational exposures/hazards: No Do you think of yourself as: Straight/Heterosexual Current gender identity: Female Physical Exam Const: GENERAL APPEARANCE: cooperative and comfortable ORIENTATION/CONSCIOUSNESS: Yes awake, Yes oriented to person, Yes oriented to place and Yes oriented to time HENMT: COMMON NORMALS: normocephalic, atraumatic and hearing grossly normal bilaterally HEAD & SCALP: normocephalic and atraumatic Resp: COMMON NORMALS: normal respiratory effort, No retractions, No use of accessory muscles and clear to auscultation bilaterally AUSCULTATION: clear to auscultation bilaterally Cardio: COMMON NORMALS: regular rate, regular rhythm and No murmurs present (Cardio) RATE: regular rate RHYTHM: regular rhythm GI: COMMON NORMALS: Soft to palpation and No hepatosplenomegaly present AUSCULTATION: Yes normoactive bowel sounds PALPATION: Yes Soft to palpation, No Tenderness to palpation present (GI), No Guarding due to palpation present (GI) and Yes No hepatosplenomegaly present Extremity: OTHER: Erythema and mild induration right leg lower leg anterior laterally neurovascularly intact extremely tender to touch pain with compression of the calf positive Homans Neuro: SENSORIUM/ORIENTATION: Yes oriented to person, Yes oriented to place and Yes oriented to time Skin: COMMON NORMALS: no rashes or lesions noted GENERAL SKIN EXAM: no rashes or lesions noted Course Vital Signs: Vital signs: Vital Signs Temperature 98.5 F 01/13/24 09:37 Pulse Rate 82 01/13/24 09:37 Pulse Oximetry 97 01/13/24 09:37 Oxygen Delivery Me thod Room Air 01/13/24 09:37 MDM - Extremity (Nontraumatic) Medical Decision Making No DVT on ultrasound no leukocytosis does have a localized cellulitis started on Bactrim 2 tablets twice daily for 10 days follow-up as needed Medical Records I reviewed the patient's medical records. Lab Data I reviewed the patient's lab results. 01/13/24 10:50 01/13/24 10:50 Radiology Impressions Venous Duplex 01/13/24 09:42 IMPRESSION: No evidence of deep venous thrombosis. Laboratory Results WBC 7.29 10^3/uL (3.29-11.43) 01/13/24 10:50 RBC 3.97 10^6/uL (3.85-5.65) 01/13/24 10:50 Hgb 11.90 g/dL (11.27-16.99) 01/13/24 10:50 Hct 38.1 % (36-47) 01/13/24 10:50 MCV 96.0 fl (85-98) 01/13/24 10:50 MCH 30.0 pg (27-33) 01/13/24 10:50 MCHC 31.2 g/dL (30-55) 01/13/24 10:50 RDW 13.2 % (12.1-15.1) 01/13/24 10:50 Plt Count 294 10^3/cmm (157-399) 01/13/24 10:50 MPV 8.2 fL (7.4-10.4) 01/13/24 10:50 Neut % (Auto) 51.9 % 01/13/24 10:50 Lymph % (Auto) 32.8 % 01/13/24 10:50 Clay % (Auto) 10.6 % 01/13/24 10:50 Eos % (Auto) 4.1 % 01/13/24 10:50 Baso % (Auto) 0.5 % 01/13/24 10:50 Neut # (Auto) 3.78 10^3/uL (1.8-7.7) 01/13/24 10:50 Lymph # (Auto) 2.4 10^3/uL (0.8-4.8) 01/13/24 10:50 Clay # (Auto) 0.8 10^3/uL (0.2-0.9) 01/13/24 10:50 Eos # (Auto) 0.3 10^3/uL (0.0-0.8) 01/13/24 10:50 Baso # (Auto) 0.0 10^3/uL (0.0-0.1) 01/13/24 10:50 Nucleated RBC % (auto) 0 % 01/13/24 10:50 Nucleated RBCs # 0.0 /100WBC 01/13/24 10:50 Sodium 136 mmol/L (136-145) 01/13/24 10:50 Potassium 3.8 mmol/L (3.5-5.1) 01/13/24 10:50 Chloride 104 mmol/L (98-107) 01/13/24 10:50 Carbon Dioxide 23 mmol/L (22-29) 01/13/24 10:50 Anion Gap 12.8 (5-19) 01/13/24 10:50 BUN 14 mg/dL (6-20) 01/13/24 10:50 Creatinine 0.7 mg/dL (0.5-0.9) 01/13/24 10:50 GFR Calculation 88.2 mL/min (90-130) L 01/13/24 10:50 Glucose 105 mg/dL (65-115) 01/13/24 10:50 Calculated Osmolality 283 mOsm/kg (285-295) L 01/13/24 10:50 Calcium 8.3 mg/dL (8.5-10.5) L 01/13/24 10:50 Total Bilirubin 0.2 mg/dL (0.15-1.2) 01/13/24 10:50 AST 16 U/L (0-32) 01/13/24 10:50 ALT 16 U/L (0-33) 01/13/24 10:50 Alkaline Phosphatase 115 U/L (35-105) H 01/13/24 10:50 Total Protein 6.5 g/dL (6.6-8.7) L 01/13/24 10:50 Albumin 3.3 g/dL (3.5-5.2) L 01/13/24 10:50 Globulin 3.2 g/dL (1.3-4.6) 01/13/24 10:50 All radiology interpretation(s) finalized by discharge Discharge Plan Discharge Patient Disposition: Home Clinical Impression: Cellulitis Condition: Stable Prescriptions: New Bactrim DS 800-160 mg tablet 2 tab PO BID 10 Days Qty: 40 0RF Discontinued cephalexin 500 mg capsule 500 mg PO TID Qty: 21 0RF No Action valsartan 80 mg tablet 80 mg PO DAILY Qty: 30 2RF topiramate [Topamax] 50 mg tablet 50 mg PO BID Qty: 60 2RF nicotine 21 mg/24 hr patch 24 hour 1 patch transdermal DAILY Qty: 28 0RF cyclobenzaprine 10 mg tablet 10 mg PO BID PRN (Reason: muscle spasm) Qty: 10 0RF prednisone 20 mg tablet 20 mg PO BID Qty: 10 0RF Victoza 3-Max 0.6 mg/0.1 mL (18 mg/3 mL) pen injector See Rx Instructions SUBCUT .COMPLEX Qty: 9 0RF Rx Instructions: inject 0.6mg subcutaneously once daily x 7 days; then 1.2mg daily for week, not to exceed 1.8mg/day SUBCUT (DME) pen needle, diabetic 33 gauge x 5/32 needle See Rx Instructions .ROUTE .MEDSUPPLY Qty: 100 5RF Rx Instructions: 1 time day MediHoney (honey) 100 % paste 1 applic topical TID Qty: 15 0RF Discharge Orders: Discharge ED (Routine); Ordered 01/13/24 Ordered By: Bryan Garnica Referrals: Gopal Wynn, CLINIC MANAGER-C [Primary Care Provider] - Discharge Diet: Usual diet Discharge Activity: Increase activity as tolerated Patient Instructions: Opioid Safety, Pain Management Activity Restrictions/Additional Instructions: Thank you for choosing [facility] for your healthcare needs today. Please realize this is an emergency room and that we are providing you with a medical screening exam and this may not be complete and all inclusive of all the testing and or work up that you may need to determine your ailment or severity of your illness. It is very important that you follow up as instructed or that you return to the Emergency Department should you have concerns or if your condition changes or worsens in any way. You were seen today for right leg pain and swelling and redness there is no sign of any blood clot on the ultrasound your white count is normal. Recommend you stop the Keflex and change instead to Bactrim DS 2 tablets twice a day for 10 days follow-up with your primary care doctor Coding Level of Care Code ED Electron Beam Machine Welder Setter for Joelle Ochoa
[2024-01-13 11:06] LABS: Basophils % 0.5 %; Eosinophils # 0.3 10^3/uL (0.0-0.8); Eosinophils % 4.1 %; Hematocrit 38.1 % (36-47); Lymphocytes # 2.4 10^3/uL (0.8-4.8); Lymphocytes % 32.8 %; Mean Corpuscular HGB Conc 31.2 g/dL (30-55); Mean Platelet Volume 8.2 fL (7.4-10.4); Monocytes # 0.8 10^3/uL (0.2-0.9); Monocytes % 10.6 %; Neutrophils # 3.78 10^3/uL (1.8-7.7); Neutrophils % 51.9 %; Nucleated Red Blood Cells % 0 %; Platelet Count 294 10^3/cmm (157-399); Red Blood Count 3.97 10^6/uL (3.85-5.65); Red Cell Distribution Width 13.2 % (12.1-15.1); White Blood Count 7.29 10^3/uL (3.29-11.43)
[2024-01-13 11:26] LABS: Alanine Aminotransferase 16 U/L (0-33); Albumin Level 3.3 g/dL (3.5-5.2); Alkaline Phosphatase 115 U/L (35-105); Aspartate Amino Transferase 16 U/L (0-32); Blood Urea Nitrogen 14 mg/dL (6-20); Calcium 8.3 mg/dL (8.5-10.5); Carbon Dioxide 23 mmol/L (22-29); Chloride 104 mmol/L (98-107); Creatinine Clr Calc Pharmacy 118.7657; Globulin 3.2 g/dL (1.3-4.6); Glomerular Filtration Rate 88.2 mL/min (90-130); Glucose 105 mg/dL (65-115); Osmolality Calculated 283 mOsm/kg (285-295); Sodium 136 mmol/L (136-145); Total Bilirubin 0.2 mg/dL (0.15-1.2); Total Protein 6.5 g/dL (6.6-8.7)
[2024-01-13 11:58] LABS: Anion Gap 12.8 (5-19); Potassium 3.8 mmol/L (3.5-5.1)
[2024-01-13 12:14] VITALS: BP 148/92; PULSE 80; RESP 16; TEMP 36.9; O2SAT 97
== END 2024-01-13 12:15 | disposition home or self-care (01) ==
PROVIDERS: Emergency Provider Family Medicine; PCP Nurse Practitioner
DX: L03.115 Cellulitis of right lower limb (principal); F17.210 Nicotine dependence, cigarettes, uncomplicated
CPT/HCPCS: 36415; 80053; 85025; 93971; 99284

== ENCOUNTER → 2024-11-19 13:49 | Outpatient (BNVA) | payer MEDICAID, SELFPAY | PROVIDERS: PCP Nurse Practitioner; Visit Provider Nurse Practitioner | DX: I10 Essential (primary) hypertension (principal); Z12.4 Encounter for screening for malignant neoplasm of cervix; E55.9 Vitamin D deficiency, unspecified | CPT/HCPCS: 80053; 80061; 82306; 84443; 85025; 88175 ==

== ENCOUNTER 2024-12-16 10:52 | Day surgery (SDC) | payer OTHER, MEDICAID, SELFPAY ==
[2024-12-16 11:22] VITALS: BP 160/110; PULSE 104; RESP 20; TEMP 36.9; O2SAT 95; BMI 39.9
[2024-12-16] MEDS: sodium chloride 0.9% 1,000 ML 15 ML IV (11:32)
--- NOTE | 2024-12-16 11:52 | P.ANESASSM_ITS ---
Pre-Anesthetic Assessment Height/Weight: Height 1.65 m Weight 108.862 kg Temp Pulse Resp BP Pulse Ox O2 Del Method 98.4 F 104 H 20 H 160/110 95 Room Air 12/16/24 11:22 12/16/24 11:22 12/16/24 11:22 12/16/24 11:22 12/16/24 11:22 12/16/24 11:22 Preop Diagnosis: GERD, Screen Operation Date: 12/16/24 10:45 Proposed Procedures p EGD [id number] G0121 R12 Z12.11(Not Applicable) - Ezequiel Lara MD s Colonoscopy(Not Applicable) - Ezequiel Lara MD Familial anesthetic complications: none Was Beta Jovanny taken within 24 hours: N/A Was Clonidine taken within 24 hours: N/A Last intake: Intake Last Liquid Date 12/15/24 Last Liquid Time 23:00 Last Solid Date 12/14/24 Last Solid Time 21:00 Social Tobacco and No alcohol 0.5 pack(s) per day 20+ pack years Exam alert, oriented x 3, clear to auscultation bilaterally and regular rate & rhythm Airway Cervical ROM: within normal limits Mallampati: Class III Dentition: false Comments: Comments: upper denture Pulmonary Sleep Apnea (has not had a sleep study, has been told by daughter she stops breathing at night) CV/HEM Congestive Heart Failure (has seen cardiology in the past, reports echocardiogram did not show decreased cardiac function 2 years ago, >4METS) None reported Hepatic None reported GI Gastroesophageal Reflux Disease Metabolic Hyperlipidemia and Morbid Obesity [facility] None reported Neuropsych None reported Anesthetic Plan ASA status: 3 Anesthesia: MAC Risk of > 500 ml blood loss (7ml/kg in children): No Medications/Allergies Home Medications ?Medication ?Instructions ?Recorded ?Confirmed ?Last Taken ?Type exenatide 5 mcg/dose (250 5 mcg (0.02 mL) SUBCUT BID # 1.2 mL 11/19/24 12/16/24 Unknown Rx mcg/mL)1.2 mL subcutaneous pen injector (Abraham) valsartan 80 mg tablet 80 mg PO DAILY #30 tabs 11/0812/16/24 12/13/24 Rx Allergies Allergy/AdvReac Type Severity Reaction Status Date / Time No Known Allergies Allergy Verified 12/16/24 11:18 Current Medications Generic Name Dose Route Start Last Admin Trade Name Freq PRN Reason Stop Dose Admin Sodium Chloride 1,000 mls @ 15 mls/hr 12/16/24 11:08 12/16/24 11:32 Sodium Chloride 0.9% IV 12/17/24 11:07 15 mls/hr .Q24H PRN Administration COLONOSCOPY FLUIDS PFSH Anesthesia Medical History Lower extremity cellulitis Obesity, morbid, BMI 40.0-49.9 Vitamin D insufficiency GERD (gastroesophageal reflux disease) Surgical History History of left knee surgery scope History of section H/O repair of right rotator cuff History of ankle surgery ORIF TRIMALLEOLAR FRACTURE Left ANKLE Family History Grandfather Hypertension Mother Hypertension Stroke Father Diabetes Social History Smoking and tobacco/nicotine status: current every day tobacco/nicotine user cigarettes Packs smoked per day: 0.5 Second hand smoke exposure: No Alcohol intake: current Alcohol intake frequency: holidays/special occasions only Substance/Drug Use: unknown Adopted: No Caregiver/support person: No Lives independently: Yes Marital status: Single service: No Current occupational exposures/hazards: No Do you think of yourself as: Straight/Heterosexual Current gender identity: Female Data Anesthesia Cardiac Studies: Echocardiogram Ultrasound 08/31/20
--- NOTE | 2024-12-16 12:22 | W.PM.OPSUD ---
Surgery/Procedure H&P Update DATE OF PROCEDURE: December 16, 2024 DATE H&P PERFORMED: 12/01/24 H&P UPDATE INFORMATION: I have reviewed H&P completed within last 30 days, I have examined patient prior to procedure and No changes to prior documentation PREOP DIAGNOSIS: GERD, Screen PLANNED PROCEDURE: Operation Date: 12/16/24 10:45 Proposed Procedures p EGD [id number] G0121 R12 Z12.11(Not Applicable) - Ezequiel Lara MD s Colonoscopy(Not Applicable) - Ezequiel Lara MD
[2024-12-16 13:27] VITALS: BP 136/86; PULSE 99; RESP 18; TEMP 36.4; O2SAT 98
[2024-12-16 13:54] VITALS: BP 156/99; PULSE 89; RESP 16; O2SAT 100
== END 2024-12-16 14:07 | disposition home or self-care (01) ==
PROVIDERS: PCP Nurse Practitioner; Visit Provider Student in an Organized Health Care Education/Training Program
PROC: 0DJ08ZZ Inspection of Upper Intestinal Tract, Via Natural or Artificial Opening Endoscopic (ICD-10-PCS; principal; 2024-12-16 10:45)
PROC: 0DJD8ZZ Inspection of Lower Intestinal Tract, Via Natural or Artificial Opening Endoscopic (ICD-10-PCS; CPT 45378; 2024-12-16 10:45)
DX: Z12.11 Encounter for screening for malignant neoplasm of colon (principal); K57.30 Diverticulosis of large intestine without perforation or abscess without bleeding; K29.50 Unspecified chronic gastritis without bleeding; K21.9 Gastro-esophageal reflux disease without esophagitis; F17.210 Nicotine dependence, cigarettes, uncomplicated; E78.5 Hyperlipidemia, unspecified; E66.01 Morbid (severe) obesity due to excess calories; Z68.39 Body mass index [BMI] 39.0-39.9, adult; Z79.899 Other long term (current) drug therapy; Z79.85 Long-term (current) use of injectable non-insulin antidiabetic drugs
CPT/HCPCS: 43239; 45378; 88305; 88342; J2704; J3490; J7030

== ENCOUNTER 2025-08-11 17:25 | Emergency (ER) | payer OTHER, MEDICAID, SELFPAY ==
--- OUTSIDE RECORDS SUMMARY | 2025-08-11 17:36 | XMS_ITS | Clinical Summary ---
Author Organization [facility] Address [address] [place]: Epic Prelude ADT TEE [place] [address] Care Team Providers Care Tool Dispatcher Name Role Phone Unavailable Primary Care Provider Unavailabl e Allergies No known active allergies Medications ibuprofen (MOTRIN) 800 mg tablet Take 1 Tablet (800 mg) by mouth every 8 hours as needed for Pain. 30 Tablet 02/09/2024 Active orphenadrine (NORFLEX) 100 mg Extended Release tablet Take 1 Tablet (100 mg) by mouth 2 times daily. 20 Tablet 02/09/2024 Active traMADoL (ULTRAM) 50 mg tabletIndicatio ns:Right inguinal pain Take 1-2 Tablets (50-100 mg) by mouth every 6 hours as needed for Pain. 30 Tablet 02/09/2024 Active Active Problems Problem Noted Date Diagnosed Date Ileitis, terminal, without complications 024 Cigarette dependence 06/13/2016 Social History Tobacco Use Types Packs/Day Years Used Date Smoking Tobacco: Every Day Cigarettes Smokeless Tobacco: Never Tobacco Cessation:Ready to Q uit: Not Asked; Counseling Given: Not Answered Alcohol Use Standard Drinks/Week Comments No 0 (1 standard drink = 0.6 oz pur e alcohol) Feeling Safe Answer Date Recorded Are you in a relationship wi th someone who hurts you emotionally and/or physically? 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 Gender Identity Not on file Sexual Orientation Not on file Last Filed Vital Signs Vital Sign Reading Time Taken Comments Blood Pressure 158/106 02/09/2024 12:17 AM CDT Pulse 78 02/09/2024 12:17 AM CDT Temperature 36.7 C (98.1 F) 02/09/2024 12:17 AM CDT Respiratory Rate 20 02/09/2024 12:1 7 AM CDT Oxygen Saturation 99% 02/09/2024 12: 17 AM CDT Inhaled Oxygen Concentration - - Weight 106.1 kg (233 lb 12.8 oz) 2023 12:17 AM CDT Height 165.1 cm (5' 5 ) 02/09/2024 12:1 7 AM CDT Body Mass Index 38.91 02/09/2024 12:17 AM CDT Plan of Treatment Health Maintenance Due Date Last Done Comments DTAP/TDAP/TD VACCINES (1 - Tdap) 01/31/1991 HEPATITIS B VACCINES (1 of 3 - 19+ 3-dose series) 01/09 HPV/Cotest (21-29) 01/31/1993 CERVICAL CANCER SCREENING 01/31/2002 HPV/Cotest (30-65) 01/31/2002 PAP SMEAR 01/31/2002 BREAST CANCER SCREENING 2012 COLORECTAL SCREENING 01/31/2017 Colorectal Cancer Screening 01/31/2017 FIT-DNA Q 3 years 01/31/2017 FIT/FOBT Q 1 year 01/31/2017 Flex Sig/CT Colonography Q 5 years 01/31/2017 ZOSTER VACCINE (1 of 2) 01/31/2022 INFLUENZA VACCINE (#1) 2025 Insurance HEALTH PLAN MEDICAID
--- OUTSIDE RECORDS SUMMARY | 2025-08-11 17:36 | XMS_ITS | Encounter Summary ---
Author Organization [facility] Address [address] [place] [address] Care Team Providers Care Features Reporter Name Role Phone Unavailable Primary Care Provider Unavailabl e Encounter Details Date Type Department Care Team (Late st Contact Info) Description 08/30/2007 Outpatient [facility] [address] [place] [address] Non-Staff, Physician NO ADDRESS ON FILE Social History Tobacco Use Types Packs/Day Years Used Date Smoking Tobacco: Never Assessed Comments Unknown Sex and Gender Information Value Date Recorded Sex Assigned at Not on file Legal Sex Female 6:52 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
--- OUTSIDE RECORDS SUMMARY | 2025-08-11 17:36 | XMS_ITS | Clinical Summary ---
Author Organization [facility] Address [address] [place] [address] Phone Care Team Providers Care Senior Controller Name Role Phone Unavailable Primary Care Provider Unavailabl e Allergies No known active allergies Medications acetaminophen (TYLENOL) 325 mg tablet Take 325 mg by mouth every 4 hours as needed. Active predniSONE (DELTASONE) 20 mg tablet Take 2 Tablets (40 mg) by mouth 2 times daily with meals. 20 Tablet None 7 Active albuterol HFA 90 mcg inhaler Take 2 Puffs by inhalation 4 times daily. 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 Gender Identity Not on file Sexual Orientation Not on file Last Filed Vital Signs Vital Sign Reading Time Taken Comments Blood Pressure 117/78 05/07/2017 7:54 PM CDT Pulse - - Temperature 36.7 C (98.1 F) 05/07/2017 7:54 PM CDT Respiratory Rate 18 05/07/2017 7:54 PM CDT Oxygen Saturation 97% 05/07/2017 7:54 PM CDT Inhaled Oxygen Concentration - - Weight 107 kg (236 lb) 05/07/2017 7:15 PM CDT Height 167.6 cm (5' 6 ) 05/07/2017 7:15 PM CDT Body Mass Index 38.09 05/07/2017 7:15 PM CDT Plan of Treatment Health Maintenance Due [...] 2) 01/31/2022 INFLUENZA VACCINE (#1) 2025 Insurance MEDICAID [facility] HEALTH PLAN [facility]
--- OUTSIDE RECORDS SUMMARY | 2025-08-11 17:36 | XMS_ITS | Encounter Summary ---
Author Organization [facility] Address [address] [place] [address] Care Team Providers Care Wild Life Photographer Name Role Phone Unavailable Primary Care Provider Unavailabl e Encounter Details Date Type Department Care Team (Late st Contact Info) Description 08/30/2007 Outpatient [facility] [address] [place] [address] Social History Tobacco Use Types Packs/Day Years Used Date Smoking Tobacco: Never Assessed Comments Unknown Sex and Gender Information Value Date Recorded Sex Assigned at Not on file Legal Sex Female 6:52 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
[2025-08-11 17:46] VITALS: BP 171/117; PULSE 94; RESP 18; TEMP 36.5; O2SAT 97; BMI 41.5
--- NOTE | 2025-08-11 18:53 | XRR_ITS ---
PROCEDURE INFORMATION: Exam: XR Left Foot Exam date and time: 08/11/2025 6:53 PM Age: 55 years old Clinical indication: Edema; Yes, it is localized; Prior surgery; Surgery date: 6+ months; Surgery type: Lt ankle surgery; Additional info: Pain, edema lt lower leg TECHNIQUE: Imaging protocol: Radiologic exam of the left foot. Views: 3 or more views. COMPARISON: CR XR ankle LT min 3V* [id number] 07/05/2023 1:23 PM FINDINGS: Bones/joints: No acute fracture or dislocation is evident. Postsurgical changes to the distal tibia and fibula. No radiographic evidence of complication. No joint effusion. Soft tissues: Generalized subcutaneous edema about the distal lower leg, ankle, and foot. XR/XR foot LT min 3V* [id number] IMPRESSION: Widespread soft tissue edema, but no acute osseous findings.
[2025-08-11 18:56] VITALS: BP 174/116; PULSE 86; O2SAT 98
--- NOTE | 2025-08-11 19:06 | USR_ITS ---
PROCEDURE INFORMATION: Exam: US Duplex Left Lower Extremity Veins, Limited Exam date and time: 08/11/2025 8:14 PM Age: 55 years old Clinical indication: Edema, localized; Lower extremity, left; Additional info: Leg pain and swelling TECHNIQUE: Imaging protocol: Real-time duplex ultrasound of the left extremity with 2-D shetty scale, color Doppler flow and spectral waveform analysis including responses to compression and other maneuvers (when performed) with image documentation. Limited exam focused on the left lower extremity veins. COMPARISON: CR (LOW EXM, ) 08/11/2025 6:53 PM FINDINGS: Left deep veins: The common femoral, femoral, proximal profunda femoral and popliteal veins are patent without thrombus. Normal Doppler waveforms. Normal compressibility and/or augmentation response. Calf veins within normal limits. Superficial veins: Greater saphenous vein at the saphenofemoral junction is patent without thrombus. Soft tissues: Unremarkable. US/CV venous duplex [facility] [id number] IMPRESSION: No evidence of deep vein thrombosis.
--- NOTE | 2025-08-11 19:15 | ED_ITS ---
HPI - Extremity Problem 2 General: Chief complaint: Extremity Problem,Nontraumatic Stated complaint: left foot swelling Time Seen by Provider: 08/11/25 18:48 History of Present Illness: 55-year-old female presents emergency ro om with complaint of left lower leg and foot swelling pain some mild redness began about 5 days ago. She generally has not felt well. She said subjective report of fever. She has headache chest pain or shortness of breath. No history of DVT. Associated symptoms: Deny chest pain, fever(s) or rash Related Data Previous Rx's ?Medication ?Instructions ?Recorded pantoprazole 20 mg tablet,delayed 20 mg PO QAM #30 tab s 05/27/25 release Compression socks #1 ea 06/08/25 cholecalciferol (vitamin D3) 125 125 mcg PO DAILY #30 caps 06/08/25 mcg (5,000 unit) capsule diclofenac sodium 1 % topical gel 2 g topical QID #100 grams 06/08/25 (Voltaren Arthritis Pain) semaglutide 0.25 mg or 0.5 mg (2 0.5 mg (0.736 mL) SUB CUT .weekly 06/08/25 mg/3 mL) subcutaneous pen injector #3 mL (Ozempic) valsartan 160 mg tablet 160 mg PO DAILY #30 tabs sulfamethoxazole 800 1 tab PO DAILY 10 days #20 t abs 08/11/25 mg-trimethoprim 160 mg tablet (Bactrim DS) Allergies Allergy/AdvReac Type Severity Reaction Status Date / Time No Known Allergies Allergy Verified 08/11/25 17:54 Review of Systems 2 Const: Denies: fever(s) or chills Card: Denies: chest pain Resp: Denies: dyspnea GI: Denies: abdominal pain : Denies: dysuria, urinary frequency or urinary urgency Musc: Denies: neck pain or back pain Skin/Breast: Denies: rash PFSH ED 2 PFSH: Medical History Venous insufficiency of both lower extremities Lower extremity cellulitis Obesity, morbid, BMI 40.0-49.9 Vitamin D insufficiency GERD (gastroesophageal reflux disease) Surgical History History of left knee surgery scope History of section H/O repair of right rotator cuff History of ankle surgery ORIF TRIMALLEOLAR FRACTURE Left ANKLE Family History Grandfather Hypertension Mother Hypertension Stroke Father Diabetes Social History Smoking and tobacco/nicotine status: current every day tobacco/nicotine user cigarettes Packs smoked per day: 0.5 Second hand smoke exposure: No Alcohol intake: current Alcohol intake frequency: holidays/special occasions only Substance/Drug Use: unknown Adopted: No Caregiver/support person: No Lives independently: Yes Marital status: Single service: No Current occupational exposures/hazards: No Do you think of yourself as: Straight/Heterosexual Current gender identity: Female Physical Exam 2 Const: GENERAL APPEARANCE: cooperative ORIENTATION/CONSCIOUSNESS: Yes awake, Yes oriented to person, Yes oriented to place and Yes oriented to time HENMT: COMMON NORMALS: normocephalic, atraumatic and hearing grossly normal bilaterally HEAD & SCALP: normocephalic and atraumatic Resp: COMMON NORMALS: normal respiratory effort, No retractions, No use of accessory muscles and clear to auscultation bilaterally AUSCULTATION: clear to auscultation bilaterally Cardio: COMMON NORMALS: regular rate, regular rhythm and No murmurs present (Cardio) RATE: regular rate RHYTHM: regular rhythm GI: COMMON NORMALS: Soft to palpation and No hepatosplenomegaly present A USCULTATION: Yes normoactive bowel sounds PALPATION: Yes Soft to palpation, No Tenderness to palpation present (GI), No Guarding due to palpation present (GI) and Yes No hepatosplenomegaly present Extremity: OTHER: 2+ edema of the left lower extremity fro m the knee distal including the foot. The distal half the lower leg there is redness warm to the touch mild induration and tenderness. Neuro: SENSORIUM/ORIENTATION: Yes oriented to person, Yes oriented to place and Yes oriented to time Skin: COMMON NORMALS: no rashes or lesions noted GENERAL SKIN EXAM: no rashes or lesions noted Course 2 Vital Signs: Vital signs: Vital Signs Temperature 97.7 F 08/11/25 17:46 Pulse Rate 91 08/11/25 21:16 Respiratory Rate 18 08/11/25 17:46 Blood Pressure 136/106 08/11/25 21:16 Pulse Oximetry 96 08/11/25 21:16 Oxygen Delivery Me thod Room Air 08/11/25 17:46 MDM - Extremity (Nontraumatic) Medical Decision Making Medical decision making Social determinants: None I reviewed the patient's medical record. I reviewed the patient's current home meds> Alternate historians: None Differential diagnosis: Cellulitis versus DVT Lab Review: Laboratory test reviewed as found in chart CBC unremarkable chemistries did not show any significant abnormalities. Imaging: X-ray of the foot unremarkable venous duplex of the left lower extremity no sign of DVT Assessment of risk Level of risk: Low Hospitalization considerations: No indication for hospitalization at this time Reexamination: Unchanged Assessment and plan: Mild cellulitis of the distal portion of the left lower extremity no DVT no elevation of white count can treat out as an outpatient with oral medications discharge patient home however follow-up with your primary care doctor within the next week return if has further problems. Lab Data 08/11/25 19:42 08/11/25 19:42 Radiology Impressions Foot X-Ray 08/11/25 18:53 IMPRESSION: Widespread soft tissue edema, but no acute osseous findings. Venous Duplex 08/11/25 19:06 IMPRESSION: No evidence of deep vein thrombosis. Laboratory Results WBC 6.62 10^3/uL (3.29-11.43) 08/11/25 19:42 RBC 4.27 10^6/uL (3.85-5.65) 08/11/25 19:42 Hgb 12.30 g/dL (11.27-16.99) 08/11/25 19:42 Hct 38.0 % (36-47) 08/11/25 19:42 MCV 89.0 fl (85-98) 08/11/25 19:42 MCH 28.8 pg (27-33) 08/11/25 19:42 MCHC 32.4 g/dL (30-55) 08/11/25 19:42 RDW 14.3 % (12.1-15.1) 08/11/25 19:42 Plt Count 404 10^3/cmm (157-399) H 08/11/25 19:42 MPV 8.0 fL (7.4-10.4) 08/11/25 19:42 Neut % (Auto) 51.2 % 08/11/25 19:42 Lymph % (Auto) 38.2 % 08/11/25 19:42 Drew % (Auto) 7.4 % 08/11/25 19:42 Eos % (Auto) 2.6 % 08/11/25 19:42 Baso % (Auto) 0.3 % 08/11/25 19:42 Neut # (Auto) 3.39 10^3/uL (1.8-7.7) 08/11/25 19:42 Lymph # (Auto) 2.5 10^3/uL (0.8-4.8) 08/11/25 19:42 Drew # (Auto) 0.5 10^3/uL (0.2-0.9) 08/11/25 19:42 Eos # (Auto) 0.2 10^3/uL (0.0-0.8) 08/11/25 19:42 Baso # (Auto) 0.0 10^3/uL (0.0-0.1) 08/11/25 19:42 Nucleated RBC % (auto) 0 % 08/11/25 19:42 Nucleated RBCs # 0.0 /100WBC 08/11/25 19:42 Sodium 137 mmol/L (136-145) 08/11/25 19:42 Potassium 4.1 mmol/L (3.5-5.1) 08/11/25 19:42 Chloride 103 mmol/L (98-107) 08/11/25 19:42 Carbon Dioxide 24 mmol/L (22-29) 08/11/25 19:42 Anion Gap 14.1 (5-19) 08/11/25 19:42 BUN 8 mg/dL (6-20) 08/11/25 19:42 Creatinine 0.7 mg/dL (0.5-0.9) 08/11/25 19:42 GFR Calculation 87.5 mL/min (90-130) L 08/11/25 19:42 Glucose 110 mg/dL (65-115) 08/11/25 19:42 Calculated Osmolality 283 mOsm/kg (285-295) L 08/11/25 19:42 Lactic Acid 1.2 mmol/L (0.5-2.2) 08/11/25 19:42 Calcium 8.7 mg/dL (8.5-10.5) 08/11/25 19:42 Total Bilirubin 0.2 mg/dL (0.15-1.2) 08/11/25 19:42 AST 14 U/L (0-32) 08/11/25 19:42 ALT 15 U/L (0-33) 08/11/25 19:42 Alkaline Phosphatase 102 U/L (35-105) 08/11/25 19:42 Total Protein 7.0 g/dL (6.6-8.7) 08/11/25 19:42 Albumin 3.6 g/dL (3.5-5.2) 08/11/25 19:42 Globulin 3.4 g/dL (1.3-4.6) 08/11/25 19:42 All radiology interpretation(s) finalized by discharge Discharge Plan Discharge Patient Disposition: Home Clinical Impression: Cellulitis Qualifiers: Site of cellulitis: extremity Site of cellulitis of extremity: lower extremity Laterality: left Qualified Code(s): L03.116 - Cellulitis of left lower limb Condition: Stable Prescriptions: New sulfamethoxazole-trimethoprim [Bactrim DS] 800-160 mg tablet 1 tab PO DAILY 10 Days Qty: 20 0RF No Action pantoprazole 20 mg tablet,delayed release (DR/EC) 20 mg PO QAM Qty: 30 2RF (DME) Compression socks See Rx Instructions .Route .MEDSUPPLY Qty: 1 0RF Rx Instructions: compression 15-20 Ozempic 0.25 mg or 0.5 mg (2 mg/3 mL) pen injector 0.5 mg SUBCUT .weekly Qty: 3 0RF valsartan 160 mg tablet 160 mg PO DAILY Qty: 30 2RF Rx Instructions: dose increase diclofenac sodium [Voltaren Arthritis Pain] 1 % gel 2 g topical QID Qty: 100 0RF Rx Instructions: apply to single elbow, wrist or hand; for hand includes palm/fingers/back of hand cholecalciferol (vitamin D3) 125 mcg (5,000 unit) capsule 125 mcg PO DAILY Qty: 30 2RF Rx Instructions: over the counter Discharge Orders: Discharge ED (Routine); Ordered 08/11/25 Ordered By: Bryan Garnica Referrals: Gopal Wynn, [employer] [Primary Care Provider, Family Practice] Discharge Diet: Usual diet Discharge Activity: Increase activity as tolerated Patient Instructions: Cellulitis (ED), Opioid Safety, Pain Management, Patient Portal & Aishwarya Instructions Activity Restrictions/Additional Instructions: [facility] [place] [facility] your healthcare needs today. It is very important that you follow up as instructed or that you return to the Emergency Department should you have concerns or if your condition changes or worsens in any way. Emergency department visits are focused on emergent conditions, in some cases you may require further evaluation on an outpatient basis. You were seen in the emergency room with complaints of swelling and redness to the left lower leg. Ultrasound not show a clot. Your white count is normal. Based on your exam suspect you do have a cellulitis we will start you on oral antibiotics elevate the leg is much as possible apply warm moist heat and follow-up with your doctor within the next week. Return to the emergency room if you have any worsening or change symptoms or develop fever or increased redness. (Please note that included in your discharge packet is information concerning opioid safety and pain management. This information is given to all patients were discharged from the ER regardless of their discharge diagnosis or the medicines they usually take or are prescribed.) Print Language: French Coding Level of Care Code ED [employer] Worker for Joelle Ochoa
[2025-08-11 19:53] LABS: Hematocrit 38.0 % (36-47); Hemoglobin 12.30 g/dL (11.27-16.99); Mean Corpuscular HGB Conc 32.4 g/dL (30-55); Mean Corpuscular Hemoglobin 28.8 pg (27-33); Mean Corpuscular Volume 89.0 fl (85-98); Nucleated Red Blood Cells % 0 %; Platelet Count 404 10^3/cmm (157-399); Red Blood Count 4.27 10^6/uL (3.85-5.65); White Blood Count 6.62 10^3/uL (3.29-11.43)
[2025-08-11 20:00] VITALS: BP 128/104; PULSE 95; O2SAT 95
[2025-08-11 20:19] LABS: Alanine Aminotransferase 15 U/L (0-33); Albumin Level 3.6 g/dL (3.5-5.2); Alkaline Phosphatase 102 U/L (35-105); Anion Gap 14.1 (5-19); Aspartate Amino Transferase 14 U/L (0-32); Blood Urea Nitrogen 8 mg/dL (6-20); Calcium 8.7 mg/dL (8.5-10.5); Carbon Dioxide 24 mmol/L (22-29); Chloride 103 mmol/L (98-107); Globulin 3.4 g/dL (1.3-4.6); Glucose 110 mg/dL (65-115); Osmolality Calculated 283 mOsm/kg (285-295); Potassium 4.1 mmol/L (3.5-5.1); Sodium 137 mmol/L (136-145); Total Protein 7.0 g/dL (6.6-8.7)
[2025-08-11 20:20] LABS: Lactic Sepsis W/Reflex 1.2 mmol/L (0.5-2.2)
[2025-08-11 21:16] VITALS: BP 136/106; PULSE 91; O2SAT 96
== END 2025-08-11 21:10 | disposition home or self-care (01) ==
PROVIDERS: Emergency Provider Family Medicine; PCP Nurse Practitioner
DX: L03.116 Cellulitis of left lower limb (principal); F17.210 Nicotine dependence, cigarettes, uncomplicated
CPT/HCPCS: 36415; 73630; 80053; 83605; 85025; 87040; 93971; 99285; J9999